=== PATIENT | male | born 1980 | race Hispanic/Latino ===

== ENCOUNTER → 2017-06-01 | Day surgery (SDC) | payer OTHER ==
[~2017-06-01] MED LIST: BACITRACIN 50,000 UNIT VIAL ONE; CLINDAMYCIN 600MG/D5W 50ML 50 ML IV ONE; DEXAMETHASONE SOD PHOS INJ 4 MG/ML VIAL ONE; FENTANYL CITRATE/PF 100MCG/2 ML INJ ONE; KETOROLAC TROMETHAMINE 30 MG/ML VIAL ONE; MIDAZOLAM HCL 2 MG/2 ML VIAL ONE; MUPIROCIN 2% OINT 22 GM TUBE ONE; NORCO 7.5-3251 EACH PO; ONDANSETRON HCL INJ 2 MG/ML VIAL ONE; PROPOFOL IV EMULSION 10 MG/ML 20 ML VIAL ONE; SEVOFLURANE INHAL SOLN 250 ML PEN BTL ONE; TRAMADOL HCL100 MG PO; TYLENOL PM PO
--- OUTSIDE RECORDS SUMMARY | 2017-06-01 05:25 | XMS REPORT | Summary of Care ---
Author Author Juana Liao Organization Unknown Address [facility] Phone Unavailable Care Team Providers Care Pawn Broker Name Role Phone MARLENE ALFORD M.D. Unavailable Unavailable KATHI HARDWICK Unavailable Unavailable Unavailable Unavailable Functional Status Name Dates Details Functional status health issues are not documented Status: Name Dates Details Cognitive status health issues are not documented Status: Problems Name Dates Details Foot injury (959.7, S99.929A) Status: Active Nondisplaced fracture of distal phalanx of right great toe, initial encounter for closed fracture (826.0, S92.424A) Status: Active Nondisplaced fracture of second metatarsal bone, right foot, initial encounter for closed fracture (825.25, S92.324A) Status: Active Closed nondisplaced fracture of distal phalanx of right great toe with routine healing (V54.19, S92.424D) Status: Active Closed nondisplaced fracture of second metatarsal bone of right foot with routine healing (V54.19, S92.324D) Status: Active Medications Name Dates Details Cephalexin 500 MG Oral Capsule TAKE 1 CAPSULE 4 TIMES DAILY UNTIL GONE. Quantity: 20 ROCÍO Anne, MARLENE * Start : 31-Mar-2017 Active Allergies and Adverse Reactions Name Dates Details No Known Drug Allergies (Allergy) Status: Active Procedures Procedure Dates Details [U] XRAY FOOT MIN 3 VWS RIGHT [id number] Date: 18-May-2017 Immunization Name Dates Details Immunizations not documented Social History Name Dates Details Unknown if ever smoked Vital Signs Date Test Result Details No Known Vitals to report Results Date Description Value Details [id number] [U] XRAY FOOT MIN 3 VWS RIGHT [id number] XR FOOT MIN 3 VWS RIGHT Images acquired, not reported on this accession number. Plan of Care Name Dates Details Planned Observations Planned Goals not documented Planned Encounters Appointment; KATHI GOMEZ, PAlisAAlis On: 19-May-2017 8:20 Interventions Provided Labs/Procedures/Imaging* [U] XRAY FOOT MIN 3 VWS RIGHT [id number]; To Be Done: 19 May 2017 Instructions Name Dates Details Instructions not documented Encounters Appointment; MARLENE ALFORD M.D. Encounter Diagnosis: Problem not documented On: 31-Mar-2017 8:00 Appointment; KATHI GOMEZ P.A. Encounter Diagnosis: Problem not documented On: 06-Apr-2017 8:15 Appointment; MARLENE ALFORD M.D. Encounter Diagnosis: Problem not documented On: 12-Apr-2017 16:20 Appointment; MARLENE ALFORD M.D. Encounter Diagnosis: Problem not documented On: 27-Apr-2017 8:30 Appointment; KATHI GOMEZ P.A. Encounter Diagnosis: Problem not documented On: 04-May-2017 15:30 Appointment; KATHI GOMEZ P.A. Encounter Diagnosis: Problem not documented On: 19-May-2017 8:20
--- NOTE | 2017-06-01 08:57 | Operative Report ---
DATE OF PROCEDURE: June 01, 2017 PREOPERATIVE DIAGNOSIS: Crush injury, dorsum right foot. POSTOPERATIVE DIAGNOSIS: Full-thickness devitalized tissue, dorsum right foot, 75 cm squared. PROCEDURES 1. Sharp excisional debridement of devitalized skin, soft tissue and peritenon, dorsum right foot, 75 cm squared. 2. Application of allograft. 3. Placement of VAC dressing. ANESTHESIA: General. HISTORY: The patient is a 36-year-old male who apparently sustained a work-related crushing injury to the dorsum of the right foot in March of 2017. He has multiple fractures of the right foot, which is being attended to by the orthopedic service. There has been no plastic surgical intervention, and the patient has full-thickness devitalized tissue comprising approximately 75 cm squared of surface area on the dorsum of the right foot. The risks, benefits and alternatives of treatment were discussed with the patient. He is prepared to undergo the procedures outlined. PROCEDURE: The patient was marked preoperatively in the holding area. He was brought to the operating theater. After the induction of adequate general anesthesia, he was prepped and draped in a supine position. A time out was performed. The procedure was begun by incising through the skin and subcutaneous tissue on the border between the devitalized and the vitalized tissues full-thickness down to the level of the extensor tendons. The entire devitalized soft tissue mass was then elevated sharply off of the dorsum of the foot. Bleeding was attended to with the electrocautery. At this point, there was a significant amount of devitalized subcutaneous tissue, which was curetted free. Once again, hemostasis was attended to. The wound was then pulse lavaged with 3 L of antibiotic containing solution. At the completion of the lavage, several other areas of devitalized tissue were noted, and these were sharply excised as well. At the completion of the debridement, the wound was clean. No further devitalized tissues remained. There was exposed peritenon from the extensor tendons, the extensor retinaculum, as well as exposed muscle. At this point, Integra bi-laminate wound allograft was placed onto the dorsum of the wound and secured using surgical clips. The patient then had a VAC dressing placed, which was set for 150 mm of continuous negative pressure. The seal was noted to be satisfactory. The patient was returned to the recovery room in satisfactory condition, and discharged with a postoperative instruction sheet, as well as a followup appointment. Job#: [id number] LYNN
== END | disposition home or self-care (01) ==
LOC: OR 05:22
PROVIDERS: ATTEND Plastic Surgery
DX: S97.81XA Crushing injury of right foot, initial encounter (principal); S91.311A Laceration without foreign body, right foot, initial encounter; S92.901A Unspecified fracture of right foot, initial encounter for closed fracture; F17.210 Nicotine dependence, cigarettes, uncomplicated; X58.XXXA Exposure to other specified factors, initial encounter; Y92.89 Other specified places as the place of occurrence of the external cause; Y99.0 Civilian activity done for income or pay
CPT/HCPCS: 15004; 15275; 15276; Q4104; J1100; J1885; J2250; J2405

== ENCOUNTER 2017-06-12 08:35 | Outpatient (RCR) | payer OTHER ==
[~2017-06-12 08:35] MED LIST changes: -BACITRACIN 50,000 UNIT VIAL ONE; -CLINDAMYCIN 600MG/D5W 50ML 50 ML IV ONE; -DEXAMETHASONE SOD PHOS INJ 4 MG/ML VIAL ONE; -FENTANYL CITRATE/PF 100MCG/2 ML INJ ONE; -KETOROLAC TROMETHAMINE 30 MG/ML VIAL ONE; -MIDAZOLAM HCL 2 MG/2 ML VIAL ONE; -MUPIROCIN 2% OINT 22 GM TUBE ONE; -ONDANSETRON HCL INJ 2 MG/ML VIAL ONE; -PROPOFOL IV EMULSION 10 MG/ML 20 ML VIAL ONE; -SEVOFLURANE INHAL SOLN 250 ML PEN BTL ONE
[2017-06-12] MEDS ORDERED: MINERAL OIL/PETROLAT/GLYCERI 6OZ BTL ONE (15:30)
== END 2017-06-14 ==
LOC: WCC 08:35
PROVIDERS: ATTEND Plastic Surgery
DX: T81.89XA Other complications of procedures, not elsewhere classified, initial encounter (principal); S97.81XA Crushing injury of right foot, initial encounter; G89.11 Acute pain due to trauma

== ENCOUNTER → 2017-06-22 | Day surgery (SDC) | payer OTHER ==
[~2017-06-22] MED LIST changes: +ALEVE220 M1; +BACITRACIN 50,000 UNIT VIAL ONE; +CEFAZOLIN SOD 1 GM VIAL ONE; +DEXAMETHASONE SOD PHOS INJ 4 MG/ML VIAL ONE; +FENTANYL CITRATE/PF 100MCG/2 ML INJ ONE; +LIDOCAINE HCL 2% LOCAL INJ 5 ML SDV VIAL INJ ONE; +MIDAZOLAM HCL 2 MG/2 ML VIAL ONE; +MINERAL OIL STERILE 10ML VIAL ONE; +MUPIROCIN 2% OINT 22 GM TUBE ONE; +ONDANSETRON HCL INJ 2 MG/ML VIAL ONE; +PROPOFOL IV EMULSION 10 MG/ML 20 ML VIAL ONE; +SEVOFLURANE INHAL SOLN 250 ML PEN BTL ONE
--- OUTSIDE RECORDS SUMMARY | 2017-06-22 07:30 | XMS REPORT | Continuity of Care Document ---
Author Author [facility] Organization [facility] Address [address] [place] [address] Phone Unavailable Care Team Providers Care Weigher Bulker Name Role Phone NO, PCP PCP Unavailable Advance Directives Directive Response Recorded Date/Time Does the patient have an advance directive? No 05/30/17 10:50am If yes, is advance directive on file with [facility]? No 05/30/17 10:50am If not on file with [facility] will patient provide a copy? No 05/30/17 10:50am Do you have a Directive to Physician? No 05/30/17 10:50am Do you have a Medical Power of Poke In? No 05/30/17 10:50am Do you have an out of hospital Do Not Resuscitate Order? No 05/30/17 10:50am Do you have any special needs we should be aware of? No 05/30/17 10:50am Do you have a support person here with you today? No 05/30/17 10:50am Did patient receive Notice of Privacy Practices? Yes 05/30/17 10:50am Did patient receive patient rights and responsibilities? Yes 05/30/17 10:50am Problems No problem information available. Medications Current Home Medications Medication Dose Units Route Directions Days Qty Instructions Start Date Hydrocodone Bit/Acetaminophen ([place] 7.5-325 Tablet) 1 Each Tablet 1 Ea Oral As Needed Tramadol Hcl 100 Mg Tab.er.24h 100 Mg Oral As Needed Tylenol Pm 1 Tab Oral As Needed Social History No social history information available. Hospital Discharge Instructions No hospital discharge instruction information available. Plan of Care Prescriptions See Medication Section Functional Status No functional status information available. Allergies, Adverse Reactions, Alerts No known allergies. Immunizations No immunization information available. Vital Signs No vital sign information available. Results No relevant diagnostic test, laboratory data and/or discharge summary information available. Procedures Procedure Status Date Provider(s) WOUND PREP F/N/HF/G Completed 06/01/17 CECILLE CABRERA MD SKIN SUB GRAFT FACE/NK/HF/G Completed 06/01/17 CECILLE CABRERA MD SKIN SUB GRAFT F/N/HF/G ADDL Completed 06/01/17 CECILLE CABRERA MD SKIN SUB GRAFT F/N/HF/G ADDL Completed 06/01/17 CECILLE CABRERA MD Completed 06/01/17 Encounters Encounter Location Arrival/Admit Date Discharge/Depart Date Attending Provider Discharged [facility] 06/12/17 8:35am 06/14/17 11:59pm CECILLE CABRERA MD [facility] 06/01/17 5:22am CECILLE CABRERA MD
--- OUTSIDE RECORDS SUMMARY | 2017-06-22 07:30 | XMS REPORT | Summary of Care ---
Author Author Juana Liao Organization Unknown Address [facility] Phone Unavailable Care Team Providers Care Judge Clerk Name Role Phone MARLENE ALFORD M.D. Unavailable [...] [U] XRAY FOOT MIN 3 VWS RIGHT [id number] Date: 09-Jun-2017 Immunization Name Dates Details Immunizations not documented Social History Name Dates Details Unknown if ever smoked Vital Signs Date Test Result Details No Known Vitals to report Results Date Description Value Details 19-May-20178:00 [U] XRAY FOOT MIN 3 VWS RIGHT [id number] XR FOOT MIN 3 VWS RIGHT Images acquired, not reported on this accession number. Plan of Care Name Dates Details Planned Observations Planned Goals not documented Interventions Provided Labs/Procedures/Imaging* [U] XRAY FOOT MIN 3 VWS RIGHT [id number]; To Be Done: 09 Jun 2017 Instructions Name Dates Details Instructions not documented Encounters Appointment; ROCÍO, MARLENE, M.D. Encounter Diagnosis: Problem not documented On: [...] Diagnosis: Problem not documented On: 19-May-2017 8:20 Appointment; KATHI GOMEZ P.A. Encounter Diagnosis: Problem not documented On: 09-Jun-2017 7:00
--- NOTE | 2017-06-23 08:57 | Operative Report ---
DATE OF PROCEDURE: June 22, 2017 PREOPERATIVE DIAGNOSIS: Open wound, right foot, staged reconstruction. POSTOPERATIVE DIAGNOSIS: Open wound, right foot approximately 75 sq cm. PROCEDURES 1. Excisional preparation of wound, right foot. 2. Split-thickness skin grafting, right foot 75 sq cm. 3. Application of negative pressure wound device. ANESTHESIA: General. HISTORY: The patient is a 37-year-old male who several months ago underwent a crush injury to the dorsal aspect of the right foot. The patient is now in a second stage of reconstruction where the allograft has completely granulated and the wound is amenable to split-thickness skin grafting. The risks, benefits, and alternatives of treatment were discussed with the patient. He is prepared to undergo the procedures outlined. DESCRIPTION OF PROCEDURE: Patient was marked preoperatively in the holding area. He is brought to the operating theater and after the induction of adequate general anesthesia, he is prepped and draped in a supine position. A time out is performed. The procedure is begun by curetting all the colonized granulation tissue, which is then followed by pulse lavage utilizing several liters of antibiotic-containing solution. At this point, a split-thickness skin graft is harvested from the right anterior lateral thigh of approximately 12 to 13 thousandths of an inch thickness. The graft is meshed in 1:5 to 1 fashion. It is placed onto the wound bed and secured using surgical clips. Xeroform gauze, Bactroban ointment, and a negative pressure VAC device is placed over the skin graft and set for a pressure of 125 mm of continuous negative pressure and the seal is noted to be satisfactory. The right anterior lateral thigh is made hemostatic and then dressed with Xeroform gauze, sterile dressings. The estimated blood loss during the procedure is approximately 50 mL. The patient is returned to recovery room in satisfactory condition and discharged with a postoperative instruction sheet as well as a followup appointment. Job#: [id number]
== END | disposition home or self-care (01) ==
LOC: OR 07:28
PROVIDERS: ATTEND Plastic Surgery
DX: Z42.8 Encounter for other plastic and reconstructive surgery following medical procedure or healed injury (principal); S91.301A Unspecified open wound, right foot, initial encounter; F17.210 Nicotine dependence, cigarettes, uncomplicated; X58.XXXA Exposure to other specified factors, initial encounter
CPT/HCPCS: 15120; J0690; J1100; J2001; J2250; J2405

== ENCOUNTER 2017-07-10 09:08 | Outpatient (RCR) | payer OTHER ==
[~2017-07-10 09:08] MED LIST changes: -BACITRACIN 50,000 UNIT VIAL ONE; -CEFAZOLIN SOD 1 GM VIAL ONE; -DEXAMETHASONE SOD PHOS INJ 4 MG/ML VIAL ONE; -FENTANYL CITRATE/PF 100MCG/2 ML INJ ONE; -LIDOCAINE HCL 2% LOCAL INJ 5 ML SDV VIAL INJ ONE; -MIDAZOLAM HCL 2 MG/2 ML VIAL ONE; -MINERAL OIL STERILE 10ML VIAL ONE; -MUPIROCIN 2% OINT 22 GM TUBE ONE; -ONDANSETRON HCL INJ 2 MG/ML VIAL ONE; -PROPOFOL IV EMULSION 10 MG/ML 20 ML VIAL ONE; -SEVOFLURANE INHAL SOLN 250 ML PEN BTL ONE
[2017-07-10] MEDS ORDERED: MUPIROCIN 2% OINT 22 GM TUBE ONE (13:40)
== END 2017-07-15 ==
LOC: WCC 09:08
PROVIDERS: ATTEND Plastic Surgery
DX: T81.89XA Other complications of procedures, not elsewhere classified, initial encounter (principal); S97.81XA Crushing injury of right foot, initial encounter; G89.11 Acute pain due to trauma

== ENCOUNTER 2017-08-07 09:42 | Outpatient (RCR) | payer OTHER ==
[~2017-08-07 09:42] MED LIST changes: +MUPIROCIN 2% OINT 22 GM TUBE ONE
[2017-08-07] MEDS ORDERED: LIDOCAINE VISC 2% SOLN 15 ML UDC ONE (14:46)
== END 2017-08-14 ==
LOC: WCC 09:42
PROVIDERS: ATTEND Plastic Surgery
DX: T81.89XA Other complications of procedures, not elsewhere classified, initial encounter (principal); G89.11 Acute pain due to trauma; S97.81XA Crushing injury of right foot, initial encounter